=== PATIENT | male | born 1960 | race Caucasian/White ===

== ENCOUNTER 2021-03-02 10:10 | Inpatient (IN) | payer SELFPAY ==
[2021-03-02 12:51] LABS: Troponin I 1.984 ng/mL (< 0.028)
[2021-03-02 15:24] LABS: Troponin I 3.684 ng/mL (< 0.028)
[2021-03-02] MEDS ORDERED: Morphine 4 MG/ML VIAL SLOW IVP SCH (18:15)
[2021-03-02 19:09] VITALS: BMI 37.2
[2021-03-02] MEDS ORDERED: Dextrose 5% in Water 1,000 ML IV PRN (19:25)
[2021-03-02] MEDS ORDERED: Acetaminophen 325 MG TAB PO PRN (19:25)
[2021-03-02] MEDS ORDERED: Dextrose 50% Abboject 50 ML SYRINGE SLOW IVP PRN (19:25)
[2021-03-02] MEDS ORDERED: Nitroglycerin 0.4 MG TAB (25 Tab Bottle) SL PRN (19:25)
[2021-03-02] MEDS ORDERED: Ondansetron PF 4 MG/2 ML Vial IVP PRN (19:25)
[2021-03-02] MEDS ORDERED: Morphine 4 MG/ML VIAL SLOW IVP PRN (19:42)
[2021-03-03 04:57] LABS: #Eosinphils 0.3 thou/uL (0.0-0.7); #Lymphocytes 2.2 thou/uL (1.20-3.40); #Monocytes 0.9 thou/uL (0.11-0.59); %Basophils 0.3 % (0.0-1.0); %Eosinophils 3.3 % (0.0-10.0); %Lymphocytes 20.6 % (21.0-51.0); %Monocytes 8.9 % (0.0-10.0); Hemoglobin 18.5 g/dL (14.0-18.0); Mean Corpuscular HGB CONC 33.5 g/dL (32.0-36.0); Mean Corpuscular Hemoglobin 28.2 pg (27.0-31.0); Mean Corpuscular Volume 84.3 fL (78.0-98.0); Mean Platelet Volume 8.5 fL (7.4-10.4); Platelet Count 195 thou/uL (130-400); RBC Distribution Width 12.2 % (11.5-14.5); Red Blood Cell (RBC) Count 6.54 mill/uL (4.70-6.10); White Blood Cell (WBC) Count 10.5 thou/uL (4.8-10.8)
[2021-03-03 05:27] LABS: Anion Gap 10 mmol/L (10-20); BUN (Urea Nitrogen) 10 mg/dL (8.4-25.7); Calc. Creatinine Clearance 112 mL/min (70-130); Calcium 9.6 mg/dL (7.8-10.44); Carbon Dioxide 28 mmol/L (22-29); Cardiac Risk 5.9 (Less than 4.5); Chloride 101 mmol/L (98-107); Cholesterol 165 mg/dl (< 200 Desired); Glucose 196 mg/dL (70-105); HDL Cholesterol 28 mg/dL (>60 Neg Risk); LDL Cholesterol, Calculated 98 mg/dL; Potassium 3.8 mmol/L (3.5-5.1); Sodium 135 mmol/L (136-145); Triglycerides 195 mg/dL (Less than 150)
[2021-03-03] MEDS ORDERED: metFORMIN 500 MG TAB PO SCH (08:00)
[2021-03-03] MEDS: Amlodipine 10 MG TAB PO SCH (08:54)
[2021-03-03] MEDS: Lisinopril 20 MG TAB PO SCH ×2 (08:55→21:27)
[2021-03-03] MEDS ORDERED: Furosemide 20 MG TAB PO SCH (09:00)
[2021-03-03] MEDS ORDERED: Communication Order-Pharmacy FS SCH (09:15)
[2021-03-03] MEDS: Aspirin 325 mg Enteric Coated Tablet PO SCH (09:23)
[2021-03-03] MEDS: Enoxaparin Sodium 100 MG/ML SYRINGE SC SCH ×2 (09:23→21:27)
[2021-03-03] MEDS: HumaLOG 300 UNITS/3 ML VIAL SC PRN (11:40)
[2021-03-03] MEDS: Carvedilol 3.125 MG TAB PO SCH (18:12)
[2021-03-03] MEDS ORDERED: Atorvastatin Calcium 20 MG TAB PO SCH (21:00)
[2021-03-03] MEDS: Atorvastatin Calcium 40 MG TAB PO SCH (21:27)
[2021-03-04 04:47] LABS: #Basophils 0.1 thou/uL (0.0-0.2); #Eosinphils 0.4 thou/uL (0.0-0.7); #Lymphocytes 2.3 thou/uL (1.20-3.40); #Monocytes 0.9 thou/uL (0.11-0.59); #Neutrophils 6.2 thou/uL (1.40-6.50); %Basophils 0.5 % (0.0-1.0); %Eosinophils 3.9 % (0.0-10.0); %Lymphocytes 23.5 % (21.0-51.0); %Monocytes 8.9 % (0.0-10.0); %Neutrophils 63.1 % (42.0-75.0); Hemoglobin 18.1 g/dL (14.0-18.0); Mean Corpuscular HGB CONC 31.9 g/dL (32.0-36.0); Mean Corpuscular Hemoglobin 26.4 pg (27.0-31.0); Mean Corpuscular Volume 82.9 fL (78.0-98.0); Mean Platelet Volume 8.4 fL (7.4-10.4); Platelet Count 186 thou/uL (130-400); RBC Distribution Width 12.2 % (11.5-14.5); Red Blood Cell (RBC) Count 6.83 mill/uL (4.70-6.10); White Blood Cell (WBC) Count 9.9 thou/uL (4.8-10.8)
[2021-03-04 05:05] LABS: Anion Gap 14 mmol/L (10-20); BUN (Urea Nitrogen) 13 mg/dL (8.4-25.7); Calc. Creatinine Clearance 109 mL/min (70-130); Calcium 9.6 mg/dL (7.8-10.44); Carbon Dioxide 26 mmol/L (22-29); Chloride 98 mmol/L (98-107); Glucose 157 mg/dL (70-105); Potassium 3.5 mmol/L (3.5-5.1); Sodium 134 mmol/L (136-145)
[2021-03-04] MEDS: Aspirin 325 mg Enteric Coated Tablet PO SCH (05:48)
[2021-03-04] MEDS: Amlodipine 10 MG TAB PO SCH (05:50)
[2021-03-04] MEDS: Lisinopril 20 MG TAB PO SCH (05:50)
[2021-03-04] MEDS: Carvedilol 3.125 MG TAB PO SCH (05:50)
[2021-03-04] MEDS: Sodium Chloride 0.9% 1,000 ML IV SCH ×2 (05:52→18:17)
[2021-03-04] MEDS ORDERED: Sodium Chloride 0.9% 1,000 ML IV SCH (06:00)
[2021-03-04] MEDS ORDERED: Lidocaine 1% (PF) 30 ML VIAL ONE (08:19)
[2021-03-04] MEDS ORDERED: Iopamidol 370 76% 100 ML VIAL ONE (09:22)
[2021-03-04] MEDS ORDERED: Clopidogrel Bisulfate 300 MG TAB PO SCH (16:45)
[2021-03-04] MEDS: Carvedilol 6.25 MG TAB PO SCH (17:08)
[2021-03-04] MEDS: HumaLOG 300 UNITS/3 ML VIAL SC PRN (17:15)
[2021-03-04] MEDS: Atorvastatin Calcium 40 MG TAB PO SCH (21:08)
[2021-03-05 04:51] LABS: #Eosinphils 0.4 thou/uL (0.0-0.7); #Lymphocytes 1.8 thou/uL (1.20-3.40); #Monocytes 0.8 thou/uL (0.11-0.59); #Neutrophils 6.5 thou/uL (1.40-6.50); %Basophils 0.5 % (0.0-1.0); %Eosinophils 3.9 % (0.0-10.0); %Lymphocytes 19.2 % (21.0-51.0); %Monocytes 8.7 % (0.0-10.0); %Neutrophils 67.8 % (42.0-75.0); Hemoglobin 17.9 g/dL (14.0-18.0); Mean Corpuscular HGB CONC 33.2 g/dL (32.0-36.0); Mean Corpuscular Hemoglobin 27.7 pg (27.0-31.0); Mean Corpuscular Volume 83.5 fL (78.0-98.0); Mean Platelet Volume 8.8 fL (7.4-10.4); Platelet Count 186 thou/uL (130-400); RBC Distribution Width 12.2 % (11.5-14.5); Red Blood Cell (RBC) Count 6.46 mill/uL (4.70-6.10); White Blood Cell (WBC) Count 9.6 thou/uL (4.8-10.8)
[2021-03-05 05:10] LABS: Anion Gap 14 mmol/L (10-20); BUN (Urea Nitrogen) 14 mg/dL (8.4-25.7); Calc. Creatinine Clearance 128 mL/min (70-130); Calcium 9.2 mg/dL (7.8-10.44); Carbon Dioxide 25 mmol/L (22-29); Chloride 100 mmol/L (98-107); Glucose 173 mg/dL (70-105); Potassium 3.6 mmol/L (3.5-5.1); Sodium 135 mmol/L (136-145)
[2021-03-05] MEDS: Clopidogrel Bisulfate 75 MG TAB PO SCH (08:22)
[2021-03-05] MEDS: Aspirin 81 mg Enteric Coated Tablet PO SCH (08:23)
[2021-03-05] MEDS: Carvedilol 6.25 MG TAB PO SCH ×2 (08:24→17:15)
[2021-03-05] MEDS: Sodium Chloride 0.9% 1,000 ML IV SCH ×2 (08:25→20:20)
[2021-03-05] MEDS ORDERED: Enoxaparin Sodium 100 MG/ML SYRINGE SC SCH (09:00)
[2021-03-05] MEDS: HumaLOG 300 UNITS/3 ML VIAL SC PRN (10:49)
[2021-03-05] MEDS: Sacubitril 49 MG/Valsartan 51 MG TABLET PO SCH (20:22)
[2021-03-05] MEDS: Enoxaparin Sodium 40 MG/0.4 ML SYRINGE SC SCH (20:22)
[2021-03-05] MEDS: Icosapent Ethyl 1 GM CAPSULE PO SCH (20:22)
[2021-03-05] MEDS: Atorvastatin Calcium 40 MG TAB PO SCH (20:23)
[2021-03-06] MEDS: HumaLOG 300 UNITS/3 ML VIAL SC PRN ×2 (06:28→17:41)
[2021-03-06] MEDS: Sacubitril 49 MG/Valsartan 51 MG TABLET PO SCH ×2 (08:51→20:31)
[2021-03-06] MEDS: Carvedilol 6.25 MG TAB PO SCH ×2 (08:51→17:46)
[2021-03-06] MEDS: Aspirin 81 mg Enteric Coated Tablet PO SCH (08:52)
[2021-03-06] MEDS: Clopidogrel Bisulfate 75 MG TAB PO SCH (08:52)
[2021-03-06] MEDS: Icosapent Ethyl 1 GM CAPSULE PO SCH ×2 (08:56→20:31)
[2021-03-06] MEDS: Atorvastatin Calcium 40 MG TAB PO SCH (20:31)
[2021-03-06] MEDS: Enoxaparin Sodium 40 MG/0.4 ML SYRINGE SC SCH (20:31)
[2021-03-07 05:54] LABS: Anion Gap 15 mmol/L (10-20); BUN (Urea Nitrogen) 11 mg/dL (8.4-25.7); Calc. Creatinine Clearance 123 mL/min (70-130); Calcium 9.4 mg/dL (7.8-10.44); Carbon Dioxide 23 mmol/L (22-29); Chloride 102 mmol/L (98-107); Glucose 155 mg/dL (70-105); Potassium 3.6 mmol/L (3.5-5.1); Sodium 136 mmol/L (136-145)
[2021-03-07] MEDS: Icosapent Ethyl 1 GM CAPSULE PO SCH ×2 (08:30→21:00)
[2021-03-07] MEDS: Carvedilol 6.25 MG TAB PO SCH ×2 (08:30→17:52)
[2021-03-07] MEDS: Sacubitril 49 MG/Valsartan 51 MG TABLET PO SCH ×2 (08:31→21:01)
[2021-03-07] MEDS: Aspirin 81 mg Enteric Coated Tablet PO SCH (08:31)
[2021-03-07] MEDS: Clopidogrel Bisulfate 75 MG TAB PO SCH (08:31)
[2021-03-07] MEDS: HumaLOG 300 UNITS/3 ML VIAL SC PRN ×2 (11:10→17:53)
[2021-03-07] MEDS: Enoxaparin Sodium 40 MG/0.4 ML SYRINGE SC SCH (21:00)
[2021-03-07] MEDS: Atorvastatin Calcium 40 MG TAB PO SCH (21:01)
[2021-03-08] MEDS: HumaLOG 300 UNITS/3 ML VIAL SC PRN ×3 (06:38→17:17)
[2021-03-08] MEDS: Clopidogrel Bisulfate 75 MG TAB PO SCH (08:56)
[2021-03-08] MEDS: Sacubitril 49 MG/Valsartan 51 MG TABLET PO SCH ×2 (08:56→21:05)
[2021-03-08] MEDS: Aspirin 81 mg Enteric Coated Tablet PO SCH (08:56)
[2021-03-08] MEDS: Icosapent Ethyl 1 GM CAPSULE PO SCH ×2 (08:56→21:05)
[2021-03-08] MEDS: Carvedilol 6.25 MG TAB PO SCH ×2 (08:56→17:18)
[2021-03-08] MEDS: Enoxaparin Sodium 40 MG/0.4 ML SYRINGE SC SCH (21:05)
[2021-03-08] MEDS: Atorvastatin Calcium 40 MG TAB PO SCH (21:05)
[2021-03-09] MEDS: HumaLOG 300 UNITS/3 ML VIAL SC PRN ×2 (06:14→11:26)
[2021-03-09] MEDS: Icosapent Ethyl 1 GM CAPSULE PO SCH (08:45)
[2021-03-09] MEDS: Carvedilol 6.25 MG TAB PO SCH (08:45)
[2021-03-09] MEDS: Aspirin 81 mg Enteric Coated Tablet PO SCH (08:45)
[2021-03-09] MEDS: Sacubitril 49 MG/Valsartan 51 MG TABLET PO SCH (08:45)
[2021-03-09] MEDS: Clopidogrel Bisulfate 75 MG TAB PO SCH (08:45)
[2021-03-09] MEDS ORDERED: Empagliflozin 10 MG TAB PO SCH (09:00)
[2021-03-09 12:10] VITALS: BP 126/77; TEMP 98.2
== END 2021-03-09 14:41 | disposition home or self-care (01) | DRG 281 ==
LOC: ERS 10:10 → ERHOLD 10:51 → 2NO 14:22
PROVIDERS: ADMIT Internal Medicine; ATTEND Internal Medicine
PROC: 4A023N7 Measurement of Cardiac Sampling and Pressure, Left Heart, Percutaneous Approach (ICD-10-PCS; principal; 2021-03-04)
PROC: B2151ZZ Fluoroscopy of Left Heart using Low Osmolar Contrast (ICD-10-PCS; 2021-03-04)
PROC: B2181ZZ Fluoroscopy of Left Internal Mammary Bypass Graft using Low Osmolar Contrast (ICD-10-PCS; 2021-03-04)
PROC: B21F1ZZ Fluoroscopy of Other Bypass Graft using Low Osmolar Contrast (ICD-10-PCS; 2021-03-04)
PROC: B2111ZZ Fluoroscopy of Multiple Coronary Arteries using Low Osmolar Contrast (ICD-10-PCS; 2021-03-04)
DX: I21.4 Non-ST elevation (NSTEMI) myocardial infarction (principal); I50.22 Chronic systolic (congestive) heart failure; Z20.822 Contact with and (suspected) exposure to COVID-19; I25.10 Atherosclerotic heart disease of native coronary artery without angina pectoris; D75.1 Secondary polycythemia; I11.0 Hypertensive heart disease with heart failure; E83.52 Hypercalcemia; I25.5 Ischemic cardiomyopathy; F17.220 Nicotine dependence, chewing tobacco, uncomplicated; E78.00 Pure hypercholesterolemia, unspecified; Z95.1 Presence of aortocoronary bypass graft; Z79.899 Other long term (current) drug therapy; Z79.84 Long term (current) use of oral hypoglycemic drugs; Z79.82 Long term (current) use of aspirin
CPT/HCPCS: 36415; 36416; 80048; 80061; 83880; 85025; 93005; 93010; 93306; 93455; 97139; 99285; J1650; J1815; J2001; J2270; J7050; Q9967